=== PATIENT | female | born 1955 | race Caucasian/White ===

== ENCOUNTER 2025-03-24 11:41 | Emergency (ER) | payer MEDICARE ==
[~2025-03-24 11:41] MED LIST: Iopamidol 300 61% 100 ML VIAL FS ONE
[2025-03-24] MEDS ORDERED: Ondansetron PF 4 MG/2 ML Vial ONE (12:20)
[2025-03-24 12:44] LABS: #Basophils Less than 0.03 10x3/uL (0.0-0.2); #Eosinophils 0.22 10x3/uL (0.0-0.5); #Monocytes 0.64 10x3/uL (0.0-1.1); #Neutrophils 1.99 10x3/uL (1.5-8.4); %Basophils 0.4 % (0.0-2.0); %Eosinophils 4.8 % (0.0-6.0); %Lymphocytes 36.8 % (18.0-47.0); %Monocytes 14.0 % (0.0-10.0); %Neutrophils 43.8 % (40.0-75.0); Hematocrit 40.0 % (34.9-44.5); Hemoglobin 13.4 g/dL (12.0-15.5); Mean Corpuscular Hemoglobin 29.8 pg (27.0-33.0); Mean Corpuscular Volume 89.1 fL (81.6-98.3); Platelet Count 261 10x3/uL (150-450); Red Blood Cell (RBC) Count 4.49 10x6/uL (3.90-5.03); White Blood Cell (WBC) Count 4.56 10x3/uL (3.5-10.5)
[2025-03-24 12:49] LABS: Glucose, Urine (Dipstick) Normal (Negative); Leukocyte 25 (Negative); Protein, Urine (Dipstick) 15 mg/dl (Neg-Trace); Specific Gravity, Urine 1.020 (1.005-1.030)
[2025-03-24 13:01] LABS: ALT (SGPT) 20 U/L (Less than 34); AST (SGOT) 28 U/L (11-34); Albumin 3.4 g/dL (3.1-4.5); Alkaline Phosphatase 85 U/L (40-110); Anion Gap 12 mmol/L (10-20); BUN (Urea Nitrogen) 14 mg/dL (9.8-20.1); Bilirubin, Total 0.7 mg/dL (0.3-1.2); CK (CPK) 36 U/L (29-168); Calc. Creatinine Clearance 0 mL/min (70-130); Calcium 8.8 mg/dL (7.8-10.44); Carbon Dioxide 28 mmol/L (23-31); Chloride 106 mmol/L (98-107); Globulin 3.4 g/dL (2.4-3.5); Glucose 137 mg/dL (80-115); Potassium 4.1 mmol/L (3.5-5.1); Sodium 142 mmol/L (136-145)
[2025-03-24 13:03] LABS: Troponin I Less than 0.010 ng/mL (< 0.028)
[2025-03-24 13:14] LABS: CAUTI Indications for Culture Dysuria,urgency,freq; RBC/HPF 0-3 HPF (0-3)
[2025-03-24 13:15] LABS: Bacteria/HPF Rare-Few HPF (None Seen)
[2025-03-24 13:16] LABS: Urine Culture Reflex No No
[2025-03-24] MEDS ORDERED: cefTRIAXone (ROCEPHIN) 2 GM VIAL ONE (15:03)
[2025-03-24] MEDS ORDERED: Ketorolac Tromethamine 30 MG (1 mL) VIAL ONE (16:44)
== END 2025-03-24 16:35 | disposition home or self-care (01) ==
LOC: CSHERS 11:41
DX: S92.502A Displaced unspecified fracture of left lesser toe(s), initial encounter for closed fracture (principal); N39.0 Urinary tract infection, site not specified; R91.1 Solitary pulmonary nodule; E11.9 Type 2 diabetes mellitus without complications; W01.0XXA Fall on same level from slipping, tripping and stumbling without subsequent striking against object, initial encounter
CPT/HCPCS: 70450; 71260; 72125; 73630; 74177; 80053; 81001; 82550; 83605; 84484; 85025; 87040; 87086; 93005; 96374; 96375; 96376; 99284; J0696; J1885; J2272; J2405; 36415; Q9967